=== PATIENT | female | born 1970 | race Two or more races ===

== ENCOUNTER 2016-07-23 04:06 | Emergency (ER) | payer SELFPAY ==
[~2016-07-23] VITALS: Ht 160 cm; Wt 130.0 kg
[2016-07-23 05:32] LABS: DAU SCREEN DISCLAIMER
[2016-07-23 05:55] LABS: ASPARTATE AMINO TRANSFERASE 25 U/L (15-37); BLOOD UREA NITROGEN 31 mg/dL (7-18)
[2016-07-23] MEDS ORDERED: SODIUM CHLORIDE 0.9% 1,000ML IVBOLUS ONE (06:00)
[2016-07-23 06:01] LABS: ACETAMINOPHEN < 2 mcg/mL (10-30)
[2016-07-23 09:18] VITALS: BP 120/87
== END 2016-07-23 09:39 | disposition home or self-care (01) ==
LOC: ED 09:33
DX: F10.129 Alcohol abuse with intoxication, unspecified (principal); F15.129 Other stimulant abuse with intoxication, unspecified; F19.129 Other psychoactive substance abuse with intoxication, unspecified; F17.200 Nicotine dependence, unspecified, uncomplicated; R74.8 Abnormal levels of other serum enzymes; Y90.9 Presence of alcohol in blood, level not specified
CPT/HCPCS: 36415; 80053; 80307; 80329; 81001; 84702; 84703; 85025; 87077; 87086; 87186; 96360; 99284; J7030; G0480